=== PATIENT | female | born 1995 | race Caucasian/White ===

== ENCOUNTER → 2019-07-29 15:47 | Outpatient (BNVA) | payer OTHER, MEDICAID, SELFPAY | PROVIDERS: Visit Provider Nurse Practitioner Women's Health | DX: N92.6 Irregular menstruation, unspecified (principal); Z34.91 Encounter for supervision of normal pregnancy, unspecified, first trimester; Z3A.01 Less than 8 weeks gestation of pregnancy | CPT/HCPCS: 76830 ==

== ENCOUNTER → 2019-07-30 10:53 | Outpatient (BNVA) | payer OTHER, MEDICAID, SELFPAY | PROVIDERS: Visit Provider Obstetrics & Gynecology | DX: Z34.01 Encounter for supervision of normal first pregnancy, first trimester; O21.9 Vomiting of pregnancy, unspecified | CPT/HCPCS: 80053; 80307; 84315; 84443; 85027; 86592; 86762; 86803; 86850; 86900; 87340; 87806 ==

== ENCOUNTER 2019-08-27 21:41 | Emergency (ER) | payer OTHER, MEDICAID, SELFPAY ==
[2019-08-27 22:11] VITALS: BP 112/74; PULSE 74; RESP 18; TEMP 37.1; O2SAT 98; BMI 21.7
--- NOTE | 2019-08-27 22:23 | US_ITS ---
WS: [id number] EARLY OBSTETRICAL ULTRASOUND (<14 WEEKS). HISTORY: Pain COMPARISON: 07/29/2019 Single intrauterine gestational sac is identified. Cardiac activity at 176 BPM. Conneaut-rump length isaiah sures 4.0 cm which corresponds to a gestation of 10w6d. Normal-appearing yolk sac and amnion demonstr ated. No subchorionic hemorrhage. No free fluid. Neither adnexa very well visualized. Cervix is closed. US/US OB <= 14 weeks fetus [id number] IMPRESSION: 1. Single intrauterine gestation of 10 weeks 6 days with an EDC of 03/18/2020. 2. No complications.
[2019-08-27 22:30] LABS: Basophils % 0.2 %; Eosinophils # 0.1 10^3/uL (0.0-0.8); Eosinophils % 1.1 %; Hemoglobin 12.1 g/dL (11.5-15.3); Lymphocytes # 1.5 10^3/uL (0.8-4.8); Lymphocytes % 16.4 %; Mean Corpuscular HGB Conc 32.7 g/dL (30.0-36.0); Mean Corpuscular Hemoglobin 28.3 pg (28.0-34.0); Mean Corpuscular Volume 86.4 fL (81-99); Mean Platelet Volume 9.7 fL (7.4-10.4); Monocytes # 0.5 10^3/uL (0.2-0.9); Monocytes % 5.9 %; Neutrophils # 6.9 10^3/uL (1.8-7.7); Nucleated Red Blood Cells % 0 %; Platelet Count 262 10^3/cmm (130-400); Red Blood Count 4.28 10^6/uL (4.1-5.3); Red Cell Distribution Width 11.4 % (12.1-15.1); White Blood Count 9.1 10^3/uL (4.0-10.0)
--- NOTE | 2019-08-27 22:31 | ED_ITS ---
HPI - Abdominal Pain General: Chief Complaint: Abdominal Pain Stated Complaint: 10 wk pg, abd pain Time Seen by Provider: 08/27/19 22:16 History of Present Illness: HPI narrative: Elly is a very nice 23-year-old female who comes in complaining of lower abdominal cramping and vaginal bleeding. The patient believes herself to be about 10 weeks with her first . The cramping has gone on for the last 4 to 5 days and has been intermittent. The vaginal spotting just began today. She has had increased nausea and vomiting and feels as though she could be dehydrated. She has occasions where she has lightheadedness and dizziness when she stands up quickly. She denies any fevers or chills, diarrhea or constipation or other abdominal pain. The bleeding is what concerned her tonight and that is her reason for coming in to have her evaluated. 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 Blue. Associated Symptoms: Reports nausea and vomiting; Denies chills, coffee ground emesis, constipation, GI cramping, diarrhea, dysuria, fever(s), heartburn, hematochezia, hematuria, hematemesis, melena and syncope Related Data: Date of Last Menstrual Period: 05/19/19 Review of Systems Const: Denies: fever(s), chills, body aches, fatigue, malaise, night sweats or diaphoresis Eyes: Denies: change in vision, blurry vision or blind spots ENMT: Denies: throat pain, odynophagia, hoarseness, ear or mastoid pain, ear discharge, change in hearing or nasal discharge Card: Denies: chest pain, palpitations, irregular heart rhythm, lightheadedness, syncope, pre-syncope, dyspnea on exertion or orthopnea Resp: Denies: dyspnea, productive cough, non-productive cough, wheezing, hemoptysis or chest congestion GI: Reports: abdominal pain, nausea and vomiting; Denies: hematemesis, coffee ground emesis, heartburn, diarrhea, constipation, GI cramping, hematochezia or melena : Reports: vaginal bleeding and other; Denies: flank pain, dysuria, urinary frequency, urinary urgency, oliguria, urinary incontinence or hematuria Musc: Denies: neck pain, back pain, extremity pain, extremity swelling, joint pain, joint swelling, joint redness, joint warmth or joint stiffness Skin/Breast: Denies: rash, pruritus, erythema, skin tenderness or jaundice Neuro: Denies: headache(s), numbness in extremities, weakness in extremities, sensory changes, lack of coordination, difficulty walking, dizziness, vertigo, confusion or Slurred speech present Endo: Denies: polyuria, polydipsia, tired all the time, cold intolerance, excessive sweating, flushing, hot flashes or heat intolerance Olvin/Lymph: Denies: easy bruising, easy bleeding, petechiae, purpura or enlarged lymph nodes All/Imm: Denies: urticaria, throat swelling, tongue swelling, facial swelling or acute wheezing PFSH ED PFSH: Medical History Anemia Diabetes Endometriosis Hyperthyroidism Polycystic ovarian syndrome Surgical History H/O cystoscopy H/O laparoscopy History of dental surgery S/P dilatation and curettage Social History Smoking and tobacco status: never smoked Female Reproductive History: Date of last menstrual period: 05/19/19 Physical Exam Const: COMMON NORMALS: no acute distress, patient oriented x3, no limitations, healthy appearing and well nourished EXAM LIMITATIONS: no altered mental status GENERAL APPEARANCE: cooperative, well kempt and well developed HENMT: COMMON NORMALS: normocephalic, atraumatic, hearing grossly normal b ilaterally, external ears normal, EAC's normal, Normal external nose present and moist oral mucous membranes HEAD & SCALP: normal to inspection, normocephalic and atraumatic FACE & SINUS: normal facial exam and face symmetric NOSE: Normal external nose present and Normal nares present EXTERNAL EAR: Yes external ears normal EXTERNAL AUDITORY CANAL: EAC's normal MOUTH: Normal oral and palatal mucosa present, lip normal and tongue normal Eye: COMMON NORMALS: Equal, round and reactive pupils present, EOMs intact bilaterally, conjunctivae normal and no scleral icterus GENERAL EYE: appearance normal, both eyes and all related structures ALIGNMENT: Yes alignment normal PERIORBITAL: periorbital findings normal EYELID: eyelids normal CONJUNCTIVA: Yes conjunctivae normal SCLERA: sclerae normal PUPIL: Yes Equal, round and reactive pupils present Neck/C-Spine: COMMON NORMALS: full ROM, no lymphadenopathy, supple, no meningeal signs and no JVD GENERAL: Yes normal visual inspection and Yes trachea midline CERVICAL SPINE: Yes cervical ROM normal Chest: COMMONS NORMALS: normal inspection of the chest and normal palpation of entire chest wall Resp: COMMON NORMALS: normal respiratory effort, No retractions, No use of accessory muscles and clear to auscultation bilaterally EFFORT & INSPECTION: Yes able to speak in complete sentences AUSCULTATION: clear to auscultation bilaterally, no crackles, no rales, no rhonchi and no wheezes Cardio: COMMON NORMALS: no JVD, regular rate, regular rhythm, S1 normal heart sound present, S2 normal heart sound present, No gallops present (Cardio), No clicks present (Cardio), No murmurs present (Cardio) and No rub (Cardio) R ATE: regular rate RHYTHM: regular rhythm HEART SOUNDS: S1 normal heart sound present, S2 normal heart sound present, no click, no gallops, no murmurs and no rubs GI: COMMON NORMALS: Soft to palpation, non-tender, No hepatosplenomegaly present and no masses PALPATION: Yes Soft to palpation, No Tenderness to palpation present (GI), No Guarding due to palpation present (GI), No Rigid due to palpation, Yes No hepatosplenomegaly present, No Hernia present, No Palpable mass present and No Pulsatile mass present : COMMON NORMALS: Yes no CVA tenderness and Yes normal bimanual exam BLADDER/KIDNEY EXAM: Yes no CVA tenderness EXTERNAL FEMALE EXAM: No Hernia present SPECULUM EXAM - CERVIX: No Cervical os open, Yes Cervical os closed and No Cervical bleeding BIMANUAL EXAM - VAGINA & UTERUS: Yes normal bimanual exam, Yes normal palpation, Yes normal palpation and No cervical motion tenderness BIMANUAL EXAM - ADNEXA, OTHER: Yes normal adnexae and Yes mobile OB/EXTERNAL & SPECULUM: No Cervical os open Back/Pelvis: COMMON NORMALS: no CVA tenderness, thoracic and lumbar spine normal to inspection, no thoracic nor lumbar tenderness and thoraco-lumbar ROM normal Extremity: COMMON NORMALS: normal to inspection, full ROM, capillary refill normal, no joint enlargement, no clubbing, cyanosis or edema and no calf tenderness Neuro: COMMON NORMALS: patient oriented x3, CN's II-XII intact bilaterally, moves all extremities, no focal motor deficits and no sensory deficits noted MENINGEAL SIGNS: Yes no meningeal signs SPEECH: speech normal Psych: COMMON NORMALS: mental status grossly normal, Normal thought process present, cooperative, normal affect, speech normal and activity/motor behavior normal APPEARANCE: Yes well kempt SPEECH: Yes normal speech THOUGHT PROCESS: Normal thought process present Skin: COMMON NORMALS: no rashes or lesions noted, turgor normal, no jaundice, no petechiae and no mottling GENERAL SKIN EXAM: no rashes or lesions noted and turgor normal Course Vital Signs: Vital signs: Vital Signs Temperature 98.6 F 08/28/19 02:02 Pulse Rate 89 08/28/19 02:02 Respiratory Rate 18 08/28/19 02:02 Blood Pressure 93/60 08/28/19 02:02 Pulse Oximetry 98 08/28/19 02:02 MDM - Abdominal Pain MDM Narrative: Medical decision making narrative: Elly is a nice 23-year-old female comes in complaining of abdominal cramping and some spotting. She's had a good deal of nausea and vomiting with this . She felt lightheaded and dizzy. She's feeling better after IV fluids though. Ultrasound is reassuring and her cervix is closed on exam. I have informed her that there is a possibility of threatened miscarriage but she understands that the ulcer in her favor as there is a good heart rate on ultrasound. She agrees to return should her symptoms change or worsen and she will follow-up with Dr. Blue. She is feeling markedly better after IV fluids and will get Rogaine him before leaving secondary to her blood type and her spotting. She denies having any other questions or concerns and agrees to follow-up as directed or return if needed. Lab Data: Attestation: I reviewed the patient's lab results. Labs: Lab Results 08/27/19 08/27/19 08/27/19 Range/Units 22:26 22:26 22:26 WBC 9.1 (4.0-10.0) 10^3/ uL RBC 4.28 (4.1-5.3) 10^6/u L Hgb 12.1 (11.5-15.3) g/dL Hct 37.0 (37.0-47.0) % MCV 86.4 (81-99) fL MCH 28.3 (28.0-34.0) pg MCHC 32.7 (30.0-36.0) g/dL RDW 11.4 L (12.1-15.1) % Plt Count 262 (130-400) 10^3/c mm MPV 9.7 (7.4-10.4) fL Neut % (Auto) 76.0 % Lymph % (Auto) 16.4 % Fleming % (Auto) 5.9 % Eos % (Auto) 1.1 % Baso % (Auto) 0.2 % Neut # (Auto) 6.9 (1.8-7.7) 10^3/u L Lymph # (Auto) 1.5 (0.8-4.8) 10^3/u L Fleming # (Auto) 0.5 (0.2-0.9) 10^3/u L Eos # (Auto) 0.1 (0.0-0.8) 10^3/u L Baso # (Auto) 0.0 (0.0-0.1) 10^3/u L Nucleated RBC % (a uto) 0 % Nucleated RBCs # 0.0 /100WBC Sodium 136 (136-145) mmol/L Potassium 4.1 (3.5-5.1) mmol/L Chloride 102 (98-107) mmol/L Carbon Dioxide 21 L (22-29) mmol/L Anion Gap 17.1 (5-19) BUN 7 (6-20) mg/dL Creatinine 0.4 L (0.5-0.9) mg/dL GFR Calculation 199.6 H (90-130) mL/min Glucose 87 (65-115) mg/dL Calculated Osmolal ity 277 L (285-295) mOsm/k g Calcium 9.2 (8.5-10.5) mg/dL Total Bilirubin 0.2 (0.15-1.2) mg/dL AST 13 (0-32) U/L ALT 16 (0-33) U/L Alkaline Phosphata se 51 (35-105) IU/L Total Protein 6.6 (6.6-8.7) g/dL Albumin 4.3 (3.5-5.2) g/dL Globulin 2.3 (1.3-4.6) g/dL Ser , Brian i-Qnt 736660.00 mIU/mL Urine Color (Yellow) Urine Appearance (CLEAR) Urine pH (5-7) Ur Specific Gravit y (1.005-1.030) Urine Protein (Negative) Urine Glucose (UA) (Normal) Urine Ketones (Negative) Urine Blood (Negative) Urine Nitrate (Negative) Urine Bilirubin (NEGATIVE) Urine Urobilinogen (Negative) mg/dL Ur Leukocyte Nancy ase (Negative) Urine RBC (0-2) /hpf Urine WBC (0-5) /hpf Ur Squamous Epith Cells (0-5) Urine Bacteria (NONE) Blood Type Cancelled Rho(D) Type Cancelled Antibody Screen 08/27/19 08/27/19 Range/Units 22:26 23:40 WBC (4.0-10.0) 10^3/ uL RBC (4.1-5.3) 10^6/u L Hgb (11.5-15.3) g/dL Hct (37.0-47.0) % MCV (81-99) fL MCH (28.0-34.0) pg MCHC (30.0-36.0) g/dL RDW (12.1-15.1) % Plt Count (130-400) 10^3/c mm MPV (7.4-10.4) fL Neut % (Auto) % Lymph % (Auto) % Fleming % (Auto) % Eos % (Auto) % Baso % (Auto) % Neut # (Auto) (1.8-7.7) 10^3/u L Lymph # (Auto) (0.8-4.8) 10^3/u L Fleming # (Auto) (0.2-0.9) 10^3/u L Eos # (Auto) (0.0-0.8) 10^3/u L Baso # (Auto) (0.0-0.1) 10^3/u L Nucleated RBC % (a uto) % Nucleated RBCs # /100WBC Sodium (136-145) mmol/L Potassium (3.5-5.1) mmol/L Chloride (98-107) mmol/L Carbon Dioxide (22-29) mmol/L Anion Gap (5-19) BUN (6-20) mg/dL Creatinine (0.5-0.9) mg/dL GFR Calculation (90-130) mL/min Glucose (65-115) mg/dL Calculated Osmolal ity (285-295) mOsm/k g Calcium (8.5-10.5) mg/dL Total Bilirubin (0.15-1.2) mg/dL AST (0-32) U/L ALT (0-33) U/L Alkaline Phosphata se (35-105) IU/L Total Protein (6.6-8.7) g/dL Albumin (3.5-5.2) g/dL Globulin (1.3-4.6) g/dL Ser , Brian i-Qnt mIU/mL Urine Color Yellow (Yellow) Urine Appearance Sl hazy (CLEAR) Urine pH 5 (5-7) Ur Specific Gravit y 1.025 (1.005-1.030) Urine Protein Neg (Negative) Urine Glucose (UA) Norm (Normal) Urine Ketones Negative (Negative) Urine Blood Neg (Negative) Urine Nitrate Negative (Negative) Urine Bilirubin Neg (NEGATIVE) Urine Urobilinogen Norm (Negative) mg/dL Ur Leukocyte Nancy ase Negative (Negative) Urine RBC Rare (0-2) /hpf Urine WBC Rare (0-5) /hpf Ur Squamous Epith Cells 0-4 H (0-5) Urine Bacteria 1+ H (NONE) Blood Type O Negative Rho(D) Type Negative Antibody Screen Negative Discharge Plan Discharge Patient Disposition: Home, Self-Care Clinical Impression: Threatened miscarriage, Acute dehydration Nausea & vomiting Qualifiers: Vomiting type: unspecified Vomiting Intractability: non-intractable Qualified Code(s): R11.2 - Nausea with vomiting, unspecified Condition: Stable Prescriptions: New Reglan 10 mg tablet 10 mg PO Q6H PRN (Reason: nausea and vomiting) Qty: 14 RF: 0 Keflex 500 mg capsule 500 mg PO Q6H 10 Days Qty: 40 RF: 0 Discharge Orders: Discharge Order (Routine); Ordered 08/28/19 Ordered By: Rosmery Arambula Referrals: Vin Blue MD [Physician] - 1-3 days Discharge Diet: Advance as tolerated and Clear Liquid Discharge Activity: Increase activity as tolerated Patient Instructions: Threatened Miscarriage (ED), Dehydration (ED), Acute Nausea and Vomiting (ED) Activity Restrictions/Additional Instructions: Please return to the ER immediately for any of the signs or symptoms listed on your discharge instruction sheets, worsening/changing of your symptoms, you are not getting better as quickly as expected, or for ANY other cause or concerns. Be certain to follow-up with Dr. Blue as soon as possible for recheck. Take your medications I have prescribed and make certain to push oral fluids. Start with a clear liquid diet and advance this to normal food as you can tolerate. Return to the ER for vaginal bleeding, abdominal pain, back pain, or for any other cause for concern. Discharge Date/Time: 08/28/19 02:03 Coding Level of Care Code ED Telecommunications Manager for Chg Fwd Exam Comprehensive
[2019-08-27 22:58] LABS: Alanine Aminotransferase 16 U/L (0-33); Albumin Level 4.3 g/dL (3.5-5.2); Alkaline Phosphatase 51 IU/L (35-105); Anion Gap 17.1 (5-19); Aspartate Amino Transferase 13 U/L (0-32); Blood Urea Nitrogen 7 mg/dL (6-20); Calcium 9.2 mg/dL (8.5-10.5); Carbon Dioxide 21 mmol/L (22-29); Chloride 102 mmol/L (98-107); Globulin 2.3 g/dL (1.3-4.6); Glomerular Filtration Rate 199.6 mL/min (90-130); Glucose 87 mg/dL (65-115); Osmolality Calculated 277 mOsm/kg (285-295); Potassium 4.1 mmol/L (3.5-5.1); Sodium 136 mmol/L (136-145); Total Bilirubin 0.2 mg/dL (0.15-1.2); Total Protein 6.6 g/dL (6.6-8.7)
[2019-08-27] MEDS: sodium chloride 0.9% 1,000 ML 999 ML IV (23:36)
[2019-08-27 23:37] VITALS: BP 104/70; PULSE 83; RESP 14; O2SAT 99
--- NOTE | 2019-08-28 00:01 | PC.NURSE ---
Assumed care at this time.
[2019-08-28 00:13] LABS: Blood Urine Neg (Negative); Glucose Urine UA Norm (Normal); Ketones Urine Negative (Negative); Protein Urine Neg (Negative); Specific Gravity, Urine 1.025 (1.005-1.030); Urine Appearance SL Hazy (CLEAR); Urine Color Yellow (Yellow); pH Urine 5 (5-7)
[2019-08-28 00:14] LABS: Bacteria Urine 1+; Bilirubin Urine Neg (NEGATIVE); Leukocyte Esterase Urine Negative (Negative); Nitrate Urine Negative (Negative); RBC Urine RARE /hpf (0-2); Squamous Epithelial Cell Urine 0-4 (0-5); Urobilinogen Urine Norm (Negative); WBC Urine RARE /hpf (0-5)
[2019-08-28] MEDS: sodium chloride 0.9% 1,000 ML 999 ML IV (00:52)
[2019-08-28 01:40] VITALS: BP 93/60; PULSE 89; RESP 18; TEMP 37
[2019-08-28 01:52] VITALS: BP 93/60; PULSE 89; RESP 18; TEMP 37; O2SAT 98
[2019-08-28 02:02] VITALS: BP 93/60; PULSE 89; RESP 18; TEMP 37; O2SAT 98
[2019-08-28] MEDS: cephALEXin 500 mg Capsule PO (02:06)
== END 2019-08-28 02:03 | disposition home or self-care (01) ==
PROVIDERS: Emergency Provider Emergency Medicine
DX: O20.0 Threatened abortion (principal); Z3A.10 10 weeks gestation of pregnancy; O26.891 Other specified pregnancy related conditions, first trimester; R11.2 Nausea with vomiting, unspecified; E86.0 Dehydration; O24.111 Pre-existing type 2 diabetes mellitus, in pregnancy, first trimester; E11.9 Type 2 diabetes mellitus without complications
CPT/HCPCS: 12345; 36415; 36430; 76801; 80053; 81001; 84702; 85025; 86850; 86900; 87086; 87210; 87491; 87591; 90384; 96360; 96361; 99283; J7030

== ENCOUNTER → 2019-09-09 12:15 | Outpatient (BNVA) | payer OTHER, MEDICAID, SELFPAY | PROVIDERS: Visit Provider Obstetrics & Gynecology | DX: Z87.42 Personal history of other diseases of the female genital tract (principal); Z12.4 Encounter for screening for malignant neoplasm of cervix | CPT/HCPCS: 82950; 84315; 88175 ==

== ENCOUNTER → 2019-11-05 08:07 | Outpatient (BNVA) | payer OTHER, MEDICAID, SELFPAY | PROVIDERS: Visit Provider Obstetrics & Gynecology | DX: Z34.92 Encounter for supervision of normal pregnancy, unspecified, second trimester (principal); Z3A.20 20 weeks gestation of pregnancy | CPT/HCPCS: 76805 ==

== ENCOUNTER → 2019-11-07 08:40 | Outpatient (BNVA) | payer OTHER, SELFPAY | PROVIDERS: Visit Provider Obstetrics & Gynecology | DX: O26.892 Other specified pregnancy related conditions, second trimester (principal); Z3A.20 20 weeks gestation of pregnancy; R30.0 Dysuria | CPT/HCPCS: 80053; 84315 ==

== ENCOUNTER → 2020-01-03 09:49 | Outpatient (BNVA) | payer OTHER, SELFPAY | PROVIDERS: Visit Provider Obstetrics & Gynecology | DX: O26.893 Other specified pregnancy related conditions, third trimester (principal); Z67.91 Unspecified blood type, Rh negative; O21.2 Late vomiting of pregnancy; R87.612 Low grade squamous intraepithelial lesion on cytologic smear of cervix (LGSIL); Z3A.28 28 weeks gestation of pregnancy | CPT/HCPCS: 82950; 84315; 85027; 86850 ==

== ENCOUNTER → 2020-02-24 08:23 | Outpatient (BNVA) | payer OTHER, SELFPAY | PROVIDERS: Visit Provider Obstetrics & Gynecology | DX: Z34.03 Encounter for supervision of normal first pregnancy, third trimester (principal) | CPT/HCPCS: 84315; 87081 ==

== ENCOUNTER 2020-03-01 18:43 | Outpatient (CLI) | payer OTHER, SELFPAY ==
[2020-03-01 18:43] VITALS: BP 116/76; PULSE 86; RESP 16; TEMP 36.7
[2020-03-01 18:55] VITALS: BMI 27.9
[2020-03-01 18:56] VITALS: BP 117/78; PULSE 104; RESP 16; TEMP 36.7
[2020-03-01 18:57] VITALS: BP 116/76; PULSE 88
[2020-03-01 19:12] VITALS: BP 117/78; PULSE 104
--- NOTE | 2020-03-01 19:17 | PC.NURSE ---
Previous shift RN, logged in on computer. This RN placed orders for patient under previous RN. Previous RN logged out and this RN logged in.
[2020-03-01 19:18] VITALS: BP 105/76; PULSE 98
[2020-03-01 19:24] LABS: Nitrazine Paper, PH Negative
[2020-03-01 19:28] VITALS: BP 105/76; PULSE 98; RESP 16; TEMP 36.7
== END 2020-03-01 19:28 | disposition home or self-care (01) ==
LOC: OPOB 18:48 → OBGYN 18:49
PROVIDERS: Visit Provider Obstetrics & Gynecology
DX: O26.899 Other specified pregnancy related conditions, unspecified trimester (principal); Z3A.00 Weeks of gestation of pregnancy not specified; N89.8 Other specified noninflammatory disorders of vagina
CPT/HCPCS: 59025; 83986; 99211

== ENCOUNTER → 2020-03-09 08:19 | Outpatient (BNVA) | payer OTHER, SELFPAY | PROVIDERS: Visit Provider Obstetrics & Gynecology | DX: Z20.828 Contact with and (suspected) exposure to other viral communicable diseases (principal); Z34.03 Encounter for supervision of normal first pregnancy, third trimester | CPT/HCPCS: 84315; 87635 ==

== ENCOUNTER → 2020-03-16 08:22 | Outpatient (BNVA) | payer OTHER, SELFPAY | PROVIDERS: Visit Provider Obstetrics & Gynecology | DX: Z34.03 Encounter for supervision of normal first pregnancy, third trimester (principal) | CPT/HCPCS: 83986; 84315 ==

== ENCOUNTER 2020-03-17 06:30 | Inpatient (IN) | payer OTHER, SELFPAY ==
[2020-03-17] VITALS (113 sets, daily range): BP systolic 0–147; BP diastolic 0–93; PULSE 58–131; RESP 16–20; TEMP 36.3–37.4; O2SAT 81–100; BMI 28.5
[2020-03-17] MEDS: dextrose 5%-lactated ringers 1,000 ML 500 ML IV (08:22)
[2020-03-17 08:27] LABS: Basophils % 0.4 %; Eosinophils # 0.1 10^3/uL (0.0-0.8); Hematocrit 29.7 % (37.0-47.0); Hemoglobin 9.4 g/dL (11.5-15.3); Lymphocytes # 1.3 10^3/uL (0.8-4.8); Lymphocytes % 12.7 %; Mean Corpuscular HGB Conc 31.6 g/dL (30.0-36.0); Mean Corpuscular Hemoglobin 27.6 pg (28.0-34.0); Mean Corpuscular Volume 87.4 fL (81-99); Mean Platelet Volume 9.9 fL (7.4-10.4); Monocytes # 0.5 10^3/uL (0.2-0.9); Monocytes % 5.1 %; Neutrophils # 7.97 10^3/uL (1.8-7.7); Neutrophils % 79.6 %; Nucleated Red Blood Cells % 0 %; Platelet Count 238 10^3/cmm (130-400); Red Cell Distribution Width 13.8 % (12.1-15.1)
[2020-03-17 08:59] LABS: Nitrazine Paper, PH Positive
[2020-03-17] MEDS: oxytocin 30 UNIT/500 ML BAG IV (09:26)
[2020-03-17] MEDS: fentaNYL 50 mcg/mL INJ 2mL IV (11:24)
[2020-03-17] MEDS: lactated ringers 1,000 ML 999 ML IV ×2 (12:00→13:14)
--- NOTE | 2020-03-17 13:27 | ANES.PROC ---
Anesthesia Procedures Procedure/Date: 03/17/20 Epidural: Time Out Performed: Yes Consents Signed: Procedure Consent Consent: requested by attending/covering physician, risks and benefits reviewed and patient agrees to proceed Lumbar Level: L4-L5 Epidural position: sitting Epidural procedure: sterile prep of area, 1% lidocaine to numb the area, negative for paresthesia passed, neg for paresthesia, test dose given, 1.5% xylocaine 1:200k epi, no systemic response, sterile dressing applied and 0.2% Ropiavacaine @ mls/hr (13 ml/r) Additional Comments: Easy single pass with distinct saline LOLA. Catheter advanced with great ease. No paresthesia or complication. Very well tolerated.
[2020-03-17] MEDS: dextrose 5%-lactated ringers 1,000 ML 125 ML IV (15:14)
--- NOTE | 2020-03-17 18:44 | PM.DELIVERY ---
Delivery Note: Date of delivery: March 17, 2020 Pre-delivery diagnoses: Term at 39-3/7 weeks gestation Post-delivery diagnoses: 1. Term at 39-3/7 weeks gestation 2. Viable female . Procedure: Spontaneous vaginal delivery Op report anesthesia: Epidural Delivering Physician: Dr. Vin Blue Estimated blood loss (mL): 100 Pre-Delivery Course: Patient is a 24-year-old female, 1, para 0 with an LMP of 07/29/2019 and an EDC of 03/21/2020 based on a 6-week ultrasound, which placed her at 39-3/7 weeks gestation at the time of admission. She presented to labor and delivery at 06:30 on 03/17/2020 with complaint of possibly leaking fluid. She had noticed a gush of fluid at approximately 04:30 this morning. On admission she was found to be ruptured. Her cervix was 75% effaced and 1 cm dilated. She was fredy irregularly every 2 to 8 minutes. By 9:00, she had still made no cervical change. As a result, Pitocin augmentation was started. She started making cervical change. She became more uncomfortable and had epidural placed at about13:15. By 16:21 she was 9-1/2 cm dilated. She was found to be completely dilated by 17:01. monitoring was reassuring during the labor course. Delivery: Patient started pushing at 17:38 and delivered at 18:19 as a spontaneous vaginal delivery of a left occiput anterior female over an intact perineum under epidural anesthesia. Following delivery of the infant's head, no nuchal cords were noted. The rest of the delivered atraumatically with the right shoulder anterior. Infant was placed on the mother's abdomen. It was spontaneously crying. Cord was clamped and then cut by the reported father of the baby. Baby was left in the care of the waiting nurses. Cord blood was obtained. Pitocin bolus was started. Placenta delivered intact by simple expression at 18:23. The cervix and vagina were palpated and noted to be intact. The labia were inspected and noted to be intact except for superficial abrasions which required no repair. FINDINGS 1. Viable female weighing 8 lbs 5 oz (3780 g) with a length of 21 inches and Apgars of 8 at 1 minute and 9 at 5 minutes. 2. Three-vessel cord with no loops of nuchal cord noted. 3. Normal-appearing placenta with an eccentric cord insertion. Post-Delivery Status: Mother and were left to recover in satisfactory condition. Coding Level of Care Code Acute Business Writer for Anya Chahal
[2020-03-17] MEDS: ibuprofen 800 mg tablet PO (21:21)
[2020-03-18] VITALS (7 sets, daily range): BP systolic 99–129; BP diastolic 66–89; PULSE 90–106; RESP 16; TEMP 36.5–37.1; O2SAT 98–99
[2020-03-18] MEDS: TRAMadol 50 mg Tablet PO (04:32)
[2020-03-18 07:33] LABS: Hematocrit 28.5 % (37.0-47.0); Hemoglobin 9.1 g/dL (11.5-15.3); Mean Corpuscular HGB Conc 31.9 g/dL (30.0-36.0); Mean Corpuscular Hemoglobin 28.5 pg (28.0-34.0); Mean Corpuscular Volume 89.3 fL (81-99); Mean Platelet Volume 12.1 fL (7.4-10.4); Platelet Count 230 10^3/cmm (130-400); Red Blood Count 3.19 10^6/uL (4.1-5.3); Red Cell Distribution Width 13.9 % (12.1-15.1); White Blood Count 14.2 10^3/uL (4.0-10.0)
[2020-03-18] MEDS: ibuprofen 800 mg tablet PO ×2 (08:20→14:16)
[2020-03-18] MEDS: docusate sodium 100 mg Capsule PO ×2 (08:21→17:28)
--- NOTE | 2020-03-18 09:21 | PM.OBGYDC ---
Discharge Providers MOTOR GRADER OPERATOR Date of Admission: 03/17/20 06:30 Date of Discharge: 03/18/20 Attending Provider at Admission: Edil Thompson MD Attending Provider at Discharge: Vin Blue MD Primary MOTOR GRADER OPERATOR: Vin Blue MD Diagnoses at Discharge Discharge Diagnosis (1) Normal spontaneous vaginal delivery: Status: Acute (2) Anemia of mother in , condition: Status: Acute (3) Rh negative status during : Status: Acute Qualifiers: Trimester: third trimester Qualified Code(s): O26.893 - Other specified related conditions, third trimester; Z67.91 - Unspecified blood type, Rh negative Reason for Visit Reason for Visit: Brief History: Leaking fluid Hospital Course Hospital Course Patient is a 24-year-old female 1, para 0 with an LMP of 07/29/2019 and an EDC of 03/21/2020 based on a 6-week ultrasound, which placed her at 39-3/7 weeks gestation at admission. She presented to labor and delivery on 03/17/2020 at 06:30 with complaint of leaking fluid. She reported having a gush of fluid at approximately 04:30 that morning. On admission, she was found to be ruptured and was fredy irregularly every 2 to 8 minutes. She was 1 cm dilated and 75% effaced. She was watched over the next couple of hours but made no cervical change and as a result Pitocin augmentation was started. She started making cervical change and became more uncomfortable. She had epidural placed at approximately 13:15. She progressed to complete dilation by 17:01. Baby was reassuring during the labor course. She started pushing at 17:38 and delivered at 18:19 as a spontaneous vaginal delivery of a left occiput anterior female over an intact perineum under epidural anesthesia. The baby weighed 8 lbs 5 oz (3780 g) with a length of 21 inches and Apgars of 8 at 1 minute and 9 at 5 minutes. Both mother and did well following delivery. Day 1 Patient is without complaints. She states that her pain is been well controlled with Tylenol and ibuprofen. She denied any lightheadedness or dizziness with ambulation. She denied any shortness of breath or chest pains. She reported tolerating a regular diet without nausea or vomiting. She denied problems with urination. She states that her bleeding has slowed. She is breast-feeding. She states that she would like to be released today if possible. Physical exam: See below Plan Patient was found to be anemic. Her admission H&H was 9.4/29.7. This morning, her H&H was 9.1/28.5. She is asymptomatic at this time. She will be started on oral iron after discharge. Discharge to home this evening. Discharge instructions discussed with patient. Patient is to follow-up in the office in approximately 6 weeks. She was instructed to take vitamins daily and OTC iron tablet daily. Information Peripartum Data: Infant Delivery Method: Vaginal Laceration description: Labial (Superficial) Episiotomy description: None complications: none [place]: 1: Gender: Female Disposition of : home Additional [place] Information: 8 lbs 5 oz (3780 g) with a length of 21 inches and Apgars of 8 at 1 minute 9 at 5 minutes. Physical Exam Const: COMMON NORMALS: no acute distress, average body habitus, alert and well nourished GENERAL APPEARANCE: well developed ORIENTATION/CONSCIOUSNESS: Yes oriented to person, Yes oriented to place and Yes oriented to time GI: COMMON NORMALS: Soft to palpation, non-tender, No hepatosplenomegaly present and no masses (Except for nontender uterus) AUSCULTATION: Yes normoactive bowel sounds PALPATION: Yes Soft to palpation, Yes No hepatosplenomegaly present and No Hernia present : EXTERNAL FEMALE EXAM: No Hernia present Extremity: COMMON NORMALS: no calf tenderness NARRATIVE EXTREMITY EXAM: Trace to 1+ lower extremity edema bilaterally Neuro: SENSORIUM/ORIENTATION: Yes alert, Yes oriented to person, Yes oriented to place and Yes oriented to time Psych: COMMON NORMALS: normal affect MOOD & AFFECT: Yes euthymic mood Urinary Catheter Management^: Spring: Cath Placed During This Visit: yes, but has since been removed by the nurse Reason for Continuing Indwelling Catheter: Decision to DC Catheter Urinary Catheter Date of Insertion: 03/17/20 Urinary Catheter Time of Insertion: 13:30 Date Urinary Catheter Removed: 03/17/20 Time Urinary Catheter Discontinued: 16:35 Discharge Data Data Completed and Pending: Pending at discharge Category Date Time Status Antibody Identifi cation Routine Lab 03/17/20 08:19 Results Complete Crossmat ch Routine Lab 12/15/20 08:19 Results Rho D Immune Glob ulin Routine Lab 03/17/20 08:19 Results Type and Screen R outine Lab 03/17/20 08:19 Results Labs from last 24 hours 03/18/20 03/18/20 03/17/20 07:20 07:20 08:19 WBC 14.2 H RBC 3.19 L Hgb 9.1 L Hct 28.5 L MCV 89.3 MCH 28.5 MCHC 31.9 RDW 13.9 Plt Count 230 MPV 12.1 H Blood Type O Negative Rho(D) Type Negative Antibody Screen Positive Antibody Identific ation Anti-D Screen Negative Vitals: Last Vital Signs Temp 98.0 F 03/18/20 09:00 Pulse 101 H 03/18/20 09:00 Resp 16 03/18/20 09:00 BP 99/66 03/18/20 09:00 Pulse Ox 98 03/18/20 04:04 Discharge Plan Discharge Patient Disposition: Home Condition: Stable Prescriptions: Continued Gummies 400 mcg-35 mg- 25 mg-5 mg tablet,chewable See Rx Instructions .ROUTE .COMPLEX RF: 0 Discharge Orders: Discharge Order (Routine); Ordered 03/18/20 Ordered By: Vin Blue Referrals: Vin Blue MD [Physician] - 04/30/20 12:45 pm ( exam visit) Discharge Diet: Regular Discharge Activity: Limit activity as instructed Patient Instructions: OB [facility] Deliver[facility] - [facility] Activity Restrictions/Additional Instructions: *May use [id number] ibuprofen 200 mg, 3 tablets 4 times a day or 4 tablets 3 times a day, as needed for pain. *Take [id number] iron, 1 tablet daily. Discharge Attestations MOTOR GRADER OPERATOR Time Spent in Discharge Care*: less than 30 min Coding Level of Care Code Acute Outsole Tacker for Chg Fwd Diagnoses Normal spontaneous vaginal delivery O80 Anemia of mother in , condition O90.81 Rh negative status during O26.893; Z67.91 Trimester: third trimester
== END 2020-03-18 19:45 | disposition home or self-care (01) | DRG 807 ==
PROVIDERS: Obstetrics & Gynecology; Admitting Provider Obstetrics & Gynecology; Visit Provider Obstetrics & Gynecology
DX: O42.02 Full-term premature rupture of membranes, onset of labor within 24 hours of rupture (principal); Z37.0 Single live birth; O99.02 Anemia complicating childbirth; D64.9 Anemia, unspecified; Z3A.39 39 weeks gestation of pregnancy
CPT/HCPCS: 12345; 36415; 51702; 59025; 59409; 80500; 83986; 85025; 85027; 85460; 86850; 86870; 86900; 90384; 96374; 98960; 99211; J2795; J3010

== ENCOUNTER → 2020-04-30 11:35 | Outpatient (BNVA) | payer OTHER, SELFPAY | PROVIDERS: Visit Provider Obstetrics & Gynecology | DX: R87.612 Low grade squamous intraepithelial lesion on cytologic smear of cervix (LGSIL) (principal); O90.81 Anemia of the puerperium | CPT/HCPCS: 88175 ==

== ENCOUNTER → 2020-05-06 13:39 | Outpatient (BNVA) | payer OTHER, SELFPAY | PROVIDERS: Visit Provider Obstetrics & Gynecology | DX: Z30.09 Encounter for other general counseling and advice on contraception (principal); O90.81 Anemia of the puerperium | CPT/HCPCS: 81025; 85027 ==

== ENCOUNTER 2021-02-15 05:57 | Emergency (ER) | payer OTHER, SELFPAY ==
[2021-02-15 06:20] VITALS: BP 108/62; PULSE 90; RESP 16; TEMP 37; O2SAT 95; BMI 19.3
--- NOTE | 2021-02-15 07:10 | ED_ITS ---
HPI - COVID General: Chief Complaint: COVID symptoms Stated Complaint: FEVER/HEADACHE/COVID EXPOSURE Time Seen by Provider: 02/15/21 06:01 Triage information: Has fever, cough or shortness of breath . Exposure to COVID + person last 14 days History of Present Illness: HPI Narrative: 25-year-old female presents emergency room with cold-like symptoms for the last 4 days. Myalgias aching cough mild diarrhea nasal congestion. Cough is nonproductive. She also presents with her child who has a slight cough as well. She denies any vomiting or diarrhea. She does have known Covid exposure. She has been taking Tylenol with good relief of symptoms fever symptoms. MD complaint: reported COVID exposure and has COVID symptoms COVID 19 common symptoms: positive fever(s), chills, cough, non-productive cough, dyspnea, fatigue, body aches, headache(s), throat pain, nasal congestion and diarrhea; negative productive cough, loss of sense of smell and/or taste, vomiting or chest tightness COVID 19 other sytmptoms: negative requiring oxygen Onset (ago): day(s) (4) Severity: mild Treatment prior to arrival: acetaminophen COVID Results: Nasal/Oral Coronavirus 2019 PCR Negative 03/09/20 10:36 03/09/20 Review of Systems Const: Reports: fever(s), chills, body aches and fatigue ENMT: Reports: throat pain and nasal congestion Resp: Reports: dyspnea and non-productive cough; Denies: productive cough GI: Reports: diarrhea; Denies: vomiting Neuro: Reports: headache(s) PFS ED PFSH: Medical History Asthma Endometriosis (~2014) Frequent UTI History of irregular menstrual cycles Possible PCOS. Surgical History H/O dilation and curettage (~2014) Done due to not having regular periods. H/O laparoscopy (~2012) Dx: Endometriosis. Performed by Dr. Blanco in [place], [place] H/O wisdom tooth extraction Family History Mother Diabetes Hypertension Father Hypertension Grandfather Hypertension Maternal grandfather Paternal grandfather Stroke Paternal grandfather Colon cancer Maternal grandfather Grandmother Hypertension Maternal grandmother Paternal grandmother Colon cancer Maternal grandmother Family history of thyroid problem Paternal grandmother Social History Smoking and tobacco status: never smoked Alcohol intake: former Former alcohol use details: Socially before Additional social history: Substance abuse: Never Female Reproductive History: Date of last menstrual period: 05/19/19 Physical Exam Const: COMMON NORMALS: no acute distress GENERAL APPEARANCE: cooperative and comfortable ORIENTATION/CONSCIOUSNESS: Yes awake, Yes oriented to person, Yes oriented to place and Yes oriented to time HENMT: COMMON NORMALS: normocephalic, atraumatic and hearing grossly normal bilaterally HEAD & SCALP: normocephalic and atraumatic Neck/C-Spine: COMMON NORMALS: no JVD Lymph: LYMPHATIC: no lymphadenopathy noted and no lymphedema noted Resp: COMMON NORMALS: normal respiratory effort, No retractions, No use of accessory muscles and clear to auscultation bilaterally AUSCULTATION: clear to auscultation bilaterally Cardio: COMMON NORMALS: no JVD, regular rate, regular rhythm and No murmurs present (Cardio) RATE: regular rate RHYTHM: regular rhythm GI: COMMON NORMALS: Soft to palpation and No hepatosplenomegaly present AUSCULTATION: Yes normoactive bowel sounds PALPATION: Yes Soft to palpation, No Tenderness to palpation present (GI), No Guarding due to palpation present (GI) and Yes No hepatosplenomegaly present Extremity: COMMON NORMALS: normal to inspection, capillary refill normal, no clubbing, cyanosis or edema, no calf tenderness and no pedal edema Neuro: SENSORIUM/ORIENTATION: Yes oriented to person, Yes oriented to place and Yes oriented to time Skin: COMMON NORMALS: no rashes or lesions noted GENERAL SKIN EXAM: no rashes or lesions noted Course Vital Signs: Vital signs: Vital Signs Temperature 98.6 F 02/15/21 06:20 Pulse Rate 113 H 02/15/21 07:58 Respiratory Rate 18 02/15/21 07:58 Blood Pressure 114/79 02/15/21 07:13 Pulse Oximetry 94 02/15/21 07:58 MDM - COVID MDM Narrative: Medical decision making narrative: Suspicious for COVID-19. Will screen. Discharge home recommend quarantine until results back. COVID Results: Nasal/Oral Coronavirus 2019 PCR Negative 03/09/20 10:36 03/09/20 Discharge Plan Discharge Patient Disposition: Home Clinical Impression: Clinical diagnosis of COVID-19 Condition: Stable Prescriptions: No Action ferrous sulfate 325 mg (65 mg iron) tablet See Rx Instructions PO DAILY RF: 0 Discharge Orders: Discharge ED (Routine); Ordered 02/15/21 Ordered By: Gilberto Montes Discharge Diet: Usual diet Discharge Activity: Resume usual activity Patient Instructions: Opioid Safety Activity Restrictions/Additional Instructions: Usual supportive cares, fluid Tylenol and ibuprofen. If breathing worsens return. You were tested for coronavirus we recommend that you maintain self quarantine until the results have returned. Coding Level of Care Code ED [employer] Manager for Anya Chahal
[2021-02-15 07:13] VITALS: BP 114/79; PULSE 95; RESP 18; O2SAT 97
[2021-02-15 07:20] VITALS: O2SAT 97
[2021-02-15 07:58] VITALS: PULSE 113; RESP 18; O2SAT 94
[2021-02-16 16:13] LABS: Coronavirus Test Green County Detected
== END 2021-02-15 07:55 | disposition home or self-care (01) ==
PROVIDERS: Emergency Provider Family Medicine
DX: U07.1 COVID-19 (principal)
CPT/HCPCS: 87635; 99282

== ENCOUNTER 2024-09-05 06:17 | Day surgery (SDC) | payer SELFPAY ==
[2024-09-05] VITALS (9 sets, daily range): BP systolic 102–119; BP diastolic 70–80; PULSE 68–90; RESP 16–18; TEMP 36.1–36.4; O2SAT 97–100; BMI 22.6
[2024-09-05] MEDS: sodium chloride 0.9% 1,000 ML 30 ML IV (06:54)
--- NOTE | 2024-09-05 07:22 | ANES.PREANE2 ---
Pre-Anesthetic Assessment Height/Weight: Height 5 ft 6 in Weight 140 lb Temp Pulse Resp BP Pulse Ox O2 Del Method 97.6 F 77 18 102/74 100 Room Air 09/05/24 06:39 09/05/24 06:39 09/05/24 06:39 09/05/24 06:39 09/05/24 06:39 09/05/24 06:39 Preop Diagnosis: spontaneous Operation Date: 09/05/24 08:10 Proposed Procedures p Dilation And Curettage (D&C)(Not Applicable) - Cm Pressley MD Was Beta Manisha taken within 24 hours: N/A Was Clonidine taken within 24 hours: N/A Last intake: Intake Last Liquid Date 09/04/24 Last Liquid Time 22:00 Last Solid Date 09/04/24 Last Solid Time 22:00 Social No alcohol and No tobacco Exam alert, oriented x 3, clear to auscultation bilaterally and regular rate & rhythm Airway Submandibular: within normal limits Cervical ROM: within normal limits Mallampati: Class I Dentition: full Anesthetic Plan ASA status: 2 Anesthesia: General Other: No prior issues with anesthesia NPO since yesterday evening Here for spontaneous , patient states that she is about 8 weeks along History of endometriosis Denies any cardiac or pulmonary issues Labs from outside facility Plan for general anesthesia with LMA Medications/Allergies Home Medications ?Medication ?Instructions ?Recorded ?Confirmed ?Last Taken ?Type cholecalciferol (vitamin D3) 25 25 mcg PO DAILY 09/05/24 09/05/24 08/29/24 History mcg (1,000 unit) tablet (Vitamin D3) Allergies Allergy/AdvReac Type Severity Reaction Status Date / Time bee venom protein (honey bee) Allergy Severe ALGY-Anaphy Verified 09/05/24 06:37 laxis Current Medications Generic Name Dose Route Start Last Admin Trade Name Freq PRN Reason Stop Dose Admin Sodium Chloride 1,000 mls @ 30 mls/hr 09/05/24 06:45 09/05/24 06:54 Sodium Chloride 0.9% IV 09/06/24 06:44 30 mls/hr .Q24H RIDGE Administration PFSH Anesthesia Medical History (Updated 10/10/21 @ 16:02 by Taina Matute MD) Hypoglycemia History of irregular menstrual cycles Possible PCOS. Frequent UTI Asthma Endometriosis (~2014) Surgical History H/O dilation and curettage (~2014) Done due to not having regular periods. H/O laparoscopy (~2012) Dx: Endometriosis. Performed by Dr. Blanco in [place], [place] H/O wisdom tooth extraction Family History (Updated 10/08/21 @ 10:07 by Darlin Romo LPN) Mother Diabetes Hypertension Father Hypertension Bleeding disorder ITP Grandfather Hypertension Maternal grandfather Paternal grandfather Stroke Paternal grandfather Colon cancer Maternal grandfather Cancer Maternal--skin and colon Grandmother Hypertension Maternal grandmother Paternal grandmother Colon cancer Maternal grandmother Family history of thyroid problem Paternal grandmother Cancer Maternal--colon Grandfather Cancer Paternal--skin Denies family history of CAD (coronary artery disease) Hyperlipidemia Chronic kidney disease (CKD) Social History (Updated 10/08/21 @ 10:08 by Darlin Romo LPN) Smoking and tobacco/nicotine status: never used tobacco/nicotine Alcohol intake: never Substance/Drug Use: never Additional social history: Substance abuse: Never
--- NOTE | 2024-09-05 07:42 | PM.OPSURHP ---
Providers/Chief Complaint Admitting Physician: Cm Pressley Primary Care Provider: Terri Moreno Chief Complaint: Pelvic pain and bleeding Incomplete spontaneous History of Present Illness Elly Mendoza is a 28 year old 2 para 1-0-0-1 female Who presented to my officeOn 27 August due to . She is unsure of her last menstrual period,She was having some spotting, and had an hCG positive test. An ultrasound performed.At that time it was concluded that she did not have a viable . She once again showed up to my office yesterday that she was noted to haveAbdominal pain but no rebound or guarding. An ultrasound was once again performed and there was minimal intrauterine contents noted. We discussed her options, and due to the severity of her pain, she elected to proceed with a D&C. We were able to schedule a D&C for this morning.We discussed the risk of the procedure including uterine perforation and bleeding.She and her had no further questionsand wished to proceed. Review of Systems General: Reports: 10 or more systems reviewed and unremarkable except in HPI and below Const: Reports: fatigue; Denies: fever(s) Eyes: Denies: change in vision Card: Denies: chest pain Musc: Reports: back pain Olvin/Lymph: Denies: easy bruising Medications/Allergies Home Medications ?Medication ?Instructions ?Recorded ?Confirmed ?Last Taken ?Type cholecalciferol (vitamin D3) 25 25 mcg PO DAILY 09/05/24 09/05/24 08/29/24 History mcg (1,000 unit) tablet (Vitamin D3) Allergies Allergy/AdvReac Type Severity Reaction Status Date / Time bee venom protein (honey bee) Allergy Severe ALGY-Anaphy Verified 09/05/24 06:37 laxis PFSH PFSH: Medical History Hypoglycemia History of irregular menstrual cycles Possible PCOS. Frequent UTI Asthma Endometriosis (~2014) Surgical History H/O dilation and curettage (~2014) Done due to not having regular periods. H/O laparoscopy (~2012) Dx: Endometriosis. Performed by Dr. Blanco in [place], [place] H/O wisdom tooth extraction Family History Mother Diabetes Hypertension Father Hypertension Bleeding disorder ITP Grandfather Hypertension Maternal grandfather Paternal grandfather Stroke Paternal grandfather Colon cancer Maternal grandfather Cancer Maternal--skin and colon Grandmother Hypertension Maternal grandmother Paternal grandmother Colon cancer Maternal grandmother Family history of thyroid problem Paternal grandmother Cancer Maternal--colon Grandfather Cancer Paternal--skin Denies family history of CAD (coronary artery disease) Hyperlipidemia Chronic kidney disease (CKD) Social History (Updated 10/08/21 @ 10:08 by Darlin Romo LPN) Smoking and tobacco/nicotine status: never used tobacco/nicotine Alcohol intake: never Substance/Drug Use: never Additional social history: Substance abuse: Never Vital Signs Vitals Signs: Last Vital Signs Temp 97.6 F 09/05/24 06:39 Pulse 77 09/05/24 06:39 Resp 18 09/05/24 06:39 BP 102/74 09/05/24 06:39 Pulse Ox 100 09/05/24 06:39 O2 Del Method Room Air 09/05/24 06:39 Weight: Weight last 48 hrs Weight 140 lb Physical Exam Const: COMMON NORMALS: patient oriented x3 and alert HENMT: COMMON NORMALS: moist oral mucous membranes HEAD & SCALP: normal to inspection Chest: COMMONS NORMALS: normal inspection of the chest Resp: COMMON NORMALS: clear to auscultation bilaterally AUSCULTATION: clear to auscultation bilaterally Cardio: COMMON NORMALS: regular rate and regular rhythm RATE: regular rate RHYTHM: regular rhythm GI: INSPECTION: Yes normal to inspection PALPATION: Yes Soft to palpation and Yes Tenderness to palpation present (GI) (Improved since yesterday.) Details: LLQ and RLQ Extremity: COMMON NORMALS: normal to inspection GENERAL: Yes edema (Trace) Neuro: COMMON NORMALS: patient oriented x3, moves all extremities and no sensory deficits noted SENSORIUM/ORIENTATION: Yes alert Psych: COMMON NORMALS: mental status grossly normal Skin: COMMON NORMALS: no rashes or lesions noted GENERAL SKIN EXAM: no rashes or lesions noted A&P Assessment and plan (1) Incomplete : Will proceed with a D&C this morning. She and her once again have no further questions. (2) Uterine bleeding: PDMP PDMP Reviewed: Not Reviewed Coding Level of Care Code Acute Code for Chg Fwd Diagnoses Incomplete O03.4 Uterine bleeding N93.9
--- NOTE | 2024-09-05 08:33 | P.OP_ITS ---
Operative Report Date of procedure: September 05, 2024 Pre-op diagnosis: 28-year-old 2 para 1-0-0-1 presenting with incomplete spontaneous Post-op diagnosis: Status post D&C due to incomplete spontaneous Procedure done: Dilation and curettage Specimens removed/disposition: Products of conception Pathology: Products of conception Surgeon: Cm Pressley MD Estimated blood loss (mL): 20 Complications: None Procedure: The patient was brought back to the operating room where she was put under general anesthesia placed in a dorsal lithotomy position and prepped and draped in usual fashion. A weighted speculum was placed. A tenaculum was placed on the anterior lip of the cervix. The cervix was then dilated. The intrauterine cavity was then carefully curettaged. Proximal of conception were removed. Bleeding was minimal. There is an excellent uterine cry in all 4 quadrants of the i ntrauterine cavity. The tenaculum was removed. Pressure was placed until this cervical bleeding from the puncture point was minimal. The patient was brought back to postop in stable condition.
--- NOTE | 2024-09-05 09:05 | ANE.PACU2 ---
Inpatient post-anesthesia follow up: Airway intact: Yes Vital signs: Temperature 97.1 F Pulse Rate 75 Respiratory Rate 17 Blood Pressure 106/70 Pulse Oximetry 98 Oxygen Delivery Me thod Room Air Oxygen Flow Rate Fraction of Inspir ed Oxygen Hydration adequate: Yes Nausea and vomiting: No Pain level: 1 Mental status: Baseline
== END 2024-09-05 09:53 | disposition home or self-care (01) ==
PROVIDERS: PCP Nurse Practitioner Family; Visit Provider Family Medicine
PROC: (CPT 58120; principal; 2024-09-05 08:00)
DX: O03.4 Incomplete spontaneous abortion without complication (principal)
CPT/HCPCS: 59812; 88305; J1100; J1200; J1885; J2405; J2704; J3010; J7030; J9999